=== PATIENT | female | born 1985 | race Caucasian/White ===

== ENCOUNTER 2017-07-20 18:53 | Emergency (ER) | payer MEDICAID ==
[~2017-07-20] VITALS: Ht 154.9 cm; Wt 79.4 kg
[2017-07-20] MEDS ORDERED: NORCO 5-325 TA1 EACH ORAL (19:42)
[2017-07-20] MEDS ORDERED: IBUPROFEN600 MG ORAL (19:42)
[2017-07-20 19:50] VITALS: BP 137/79
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
== END 2017-07-20 19:50 | disposition home or self-care (01) ==
LOC: EMR 19:47
DX: M54.5 Low back pain (principal); M54.2 Cervicalgia; V43.52XA Car driver injured in collision with other type car in traffic accident, initial encounter; Y92.410 Unspecified street and highway as the place of occurrence of the external cause
CPT/HCPCS: 99284